=== PATIENT | female | born 1950 | race Caucasian/White ===

== ENCOUNTER 2017-12-01 11:50 | Inpatient (IN) | payer MEDICARE ==
[~2017-12-01] VITALS: Ht 172.7 cm; Wt 52.6 kg
[~2017-12-01 11:50] MED LIST: BUTA1CAP29 PO; LEVO500T8 PO; QUET25TA5 PO; SERT100T PO
[2017-12-01 13:30] VITALS: BP 91/62
[2017-12-01] MEDS ORDERED: ALPR0.25 PO (13:34)
[2017-12-01] MEDS ORDERED: ALPRAZolam 0.25 MG TABLET PO PRN (14:15)
[2017-12-01 14:47] LABS: BASO % 0 % (0-3); EOS # 0.1 x10^3/uL (0.0-0.7); EOS % 2 % (0-3); HEMATOCRIT 41.7 % (36.0-47.0); HEMOGLOBIN 13.9 g/dL (12.0-15.5); LYMPH # 1.9 x10^3/uL (1.0-4.8); LYMPH % 39 % (24-48); MEAN CORPUSCULAR HEMOGLOBIN 32 pg (25-35); MEAN CORPUSCULAR HGB CONC 33 g/dL (31-37); MEAN CORPUSCULAR VOLUME 94 fL (79-100); MONO # 0.5 x10^3/uL (0.0-1.1); MONO % 10 % (0-9); NEUT # 2.3 x10^3uL (1.8-7.7); NEUT % 49 % (31-73); PLATELET COUNT 211 x10^3/uL (140-400); RED BLOOD COUNT 4.42 x10^6/uL (3.50-5.40); RED CELL DISTRIBUTION WIDTH 14.9 % (11.5-14.5); WHITE BLOOD COUNT 4.8 x10^3/uL (4.0-11.0)
[2017-12-01 15:00] VITALS: BP_SYST 104; BP_SYST 146; BP_DIAS 76; BP_DIAS 77
[2017-12-01 15:00] LABS: ALBUMIN 3.5 g/dL (3.4-5.0); ALBUMIN/GLOBULIN RATIO 1.1 (1.0-1.7); CREATININE 0.7 mg/dL (0.6-1.0); GFR 83.2; POTASSIUM 4.9 mmol/L (3.5-5.1); TOTAL BILIRUBIN 0.2 mg/dL (0.2-1.0); TOTAL PROTEIN 6.8 g/dL (6.4-8.2)
[2017-12-01 15:33] LABS: BILIRUBIN,URINE NEGATIVE (NEG); CLARITY,URINE CLEAR; COLOR,URINE YELLOW; NITRITE,URINE NEGATIVE (NEG); PROTEIN,URINE NEGATIVE (NEG-TRACE); UROBILINOGEN,URINE 0.2 mg/dL (0.2 mg/dL)
--- NOTE | 2017-12-01 15:50 | RAD ---
CT head without intravenous contrast History: Headache, weakness. Comparison: None. Technique: Axial images are obtained of the head from the skull base through the vertex without IV contrast. Exposure: One or more of the following individualized dose reduction techniques were utilized for this examination: 1. Automated exposure control 2. Adjustment of the mA and/or kV according to patient size 3. Use of iterative reconstruction technique Findings: The ventricles are appropriate in size, shape, and location for the patient's age. No obvious intracranial mass, mass-effect, midline shift, hemorrhage or obvious acute infarction is identified. Basilar cisterns are patent. Bone windows demonstrate no acute calvarial abnormality. The visualized paranasal sinuses appear clear. Impression: 1. No acute intracranial process. Electronically signed by: Ronald Martin MD (12/01/2017 3:47 PM) [facility]
[2017-12-01 16:00] LABS: BACTERIA,URINE 0 /HPF (0-FEW); HYALINE CASTS, URINE MANY /HPF; RBC,URINE 0 /HPF (0-2); SQUAMOUS EPITHELIAL CELL,UR MOD /LPF
--- NOTE | 2017-12-01 17:03 | PDOC2 ---
NEUROLOGY CONSULT Date of Admission Date of Admission DATE: 12/01/17 TIME: 16:53 Reason for Consult Reason for Consult: IMPRESSION: Persistent severe headaches for about 4-5 days. Chronic migraine headache. generalized weakness. COPD. Depression. RECOMMENDATIONS/PLAN: Neurontin 100 mg tid. Topamax 25 mg bid. Pain control. Brain MRI w/wo contrast. Lab: see orders. Treat medical diseases. HISTORY OF THE PRESENT ILLNESS: 67-y-old female patient with Hx of chronic migraine headache for many years. She used to have 4 or more headaches a month lasting for a day each time , but she has different type of headaches this time as severe and prolonged headaches mostly in her occipital head then the entire head. She rated her headaches 10/10 as severe sharp pain. No projectile vomiting. PAST MEDICAL HISTORY: Chronic migraine headache, depression and COPD. PAST SURGERY HISTORY: Cholecystectomy. ALLERGIES: NKDA. FAMILY HISTORY: Noncontributory. MEDICATIONS: Refer to MAR SOCIAL HISTORY: Lives at home. Denies drinking,and illicit drug use. She smokes cigarettes for years. REVIEW OF SYSTEMS: Constitutional: No cachexia. Head: No traumatic brain or head injury. Skin: No edema, or rash. Ear: No infection. Eyes: No vision loss or color blindness. Nose: No bleeding or purulent discharges. Hearing: No hearing decrease. Neck: No injury. Breast: No history of cancer, masses,or discharges. Cardiac: No SC, arrhythmia,claudication. Pulmonary: No COPD. GI: No GI ulcer, GI bleeding. Urinary/genital: UTI. Endocrinologic: No cousin face, craniofacial dysmorphism, polydactyly. Skeletomuscular: Generalized weakness. Neurological: see HP. Psychiatric: Denies drug use/abuse. Otherwise, not [id number] review of systems. PHYSICAL EXAMINATION: General appearance is in subacute distress. HEENT: Normocephalic and nontraumatic. Eyes, nose, ears, and throat are unremarkable. Neck is supple. No lymphadenopathy. No crepitus. Cardiovascular: S1, S2, regular rate and rhythm. Pulmonary: Clear to auscultation bilaterally. Abdomen: Bowel sounds are positive. Abdomen is soft, nontender, and nondistended. Extremities: No rash, lesions, or edema. No restriction of range of motion NEUROLOGICAL EXAMINATION: Alert Oriented to time, place and person. PERRL. EOMI. CN: no focal findings. Muscle tone: within normal. Muscle strength: 5- DTR: 2 Plantar reflex: Flexor response bilaterally Gait: not examined in chair. Sensory exam: no abnormal findings. No cerebellar signs elicited. F-T-N test accurate. Current Medications Current Medications Current Medications Alprazolam (Xanax) 0.25 mg PRN TID PRN PO ANXIETY / AGITATION; Start 12/01/17 at 14:15 Acetaminophen/ Butalbital/ Caffeine (Fioricet) 1 tab PRN Q4HRS PRN PO MIGRAINE HEADACHE; Start 12/01/17 at 14:15 Quetiapine Fumarate (SEROquel) 25 mg QHS PO ; Start 12/01/17 at 21:00 Gabapentin (Neurontin) 100 mg TID PO ; Start 12/01/17 at 21:00 Topiramate (Topamax) 25 mg BID PO ; Start 12/01/17 at 21:00 Active Scripts Active Reported Xanax (Alprazolam) 0.25 Mg Tablet 1 Tab PO PRN TID Fioricet 50-300-40 Mg Capsule (Butalb/Acetaminophen/Caffeine) 1 Each Capsule 1 Each PO PRN Q4HRS PRN Seroquel (Quetiapine Fumarate) 25 Mg Tablet 1 Tab PO QHS Allergies Allergies: Allergies Coded Allergies Type Severity Reaction Last Updated Verified fentanyl Allergy Severe Anaphylaxis 12/01/17 Yes ROS Review of System The patient denies any associated fevers, chills, headache, ear pain, rhinorrhea , sore throat, stiff neck, productive cough, chest pain, shortness of breath, back or flank pain, abdominal pain, nausea, vomiting, diarrhea, constipation, dysuria, rash, numbness, weakness, tingling, incontinence, difficulty ambulating, or diaphoresis. Physical Exam Physical Exam General: Well developed, well nourished, no acute distress, well appearing HEENT: Pupils equally round and reactive to light, EOMI, no discharge, normal conjunctiva Neck: Supple, no nuchal rigidity, no JVD, trachea midline, no tenderness Cardiac: RRR, no murmurs, no gallops, no rubs Chest/Lungs: CTAB, no wheeze, no rhonchi, no crackles Abdomen: soft, non-distended, no guarding, no peritoneal signs, non-tender Back: No tenderness Extremities: no edema, pulses intact, non-tender,capillary refill <3 sec bilateral upper and lower extremities, Neuro: Alert and oriented x 4, no focal deficits, normal speech Vitals Vitals: Vital Signs Date Time Temp Pulse Resp B/P (MAP) Pulse Ox O2 Delivery O2 Flow Rate FiO2 12/01/17 15:00 98.8 73 16 104/76 (85) 90 Room Air 98.8 Labs Labs Laboratory Tests Test 12/01/17 14:25 12/01/17 14:45 White Blood Count 4.8 x10^3/uL (4.0-11.0) Red Blood Count 4.42 x10^6/uL (3.50-5.40) Hemoglobin 13.9 g/dL (12.0-15.5) Hematocrit 41.7 % (36.0-47.0) Mean Corpuscular Volume 94 fL (79-100) Mean Corpuscular Hemoglobin 32 pg (25-35) Mean Corpuscular Hemoglobin Concent 33 g/dL (31-37) Red Cell Distribution Width 14.9 % (11.5-14.5) Platelet Count 211 x10^3/uL (140-400) Neutrophils (%) (Auto) 49 % (31-73) Lymphocytes (%) (Auto) 39 % (24-48) Monocytes (%) (Auto) 10 % (0-9) Eosinophils (%) (Auto) 2 % (0-3) Basophils (%) (Auto) 0 % (0-3) Neutrophils # (Auto) 2.3 x10^3uL (1.8-7.7) Lymphocytes # (Auto) 1.9 x10^3/uL (1.0-4.8) Monocytes # (Auto) 0.5 x10^3/uL (0.0-1.1) Eosinophils # (Auto) 0.1 x10^3/uL (0.0-0.7) Basophils # (Auto) 0.0 x10^3/uL (0.0-0.2) Erythrocyte Sedimentation Rate 2 (0-25) Sodium Level 141 mmol/L (136-145) Potassium Level 4.9 mmol/L (3.5-5.1) Chloride Level 104 mmol/L (98-107) Carbon Dioxide Level 36 mmol/L (21-32) Anion Gap 1 (6-14) Blood Urea Nitrogen 9 mg/dL (7-20) Creatinine 0.7 mg/dL (0.6-1.0) Estimated GFR (Cockcroft-Gault) 83.2 BUN/Creatinine Ratio 13 (6-20) Glucose Level 76 mg/dL (70-99) Calcium Level 9.0 mg/dL (8.5-10.1) Total Bilirubin 0.2 mg/dL (0.2-1.0) Aspartate Amino Transf (AST/SGOT) 15 U/L (15-37) Alanine Aminotransferase (ALT/SGPT) 20 U/L (14-59) Alkaline Phosphatase 80 U/L (46-116) Creatine Kinase 58 U/L (26-192) Total Protein 6.8 g/dL (6.4-8.2) Albumin 3.5 g/dL (3.4-5.0) Albumin/Globulin Ratio 1.1 (1.0-1.7) Urine Collection Type Unknown Urine Color Yellow Urine Clarity Clear Urine pH 7.0 Urine Specific [place] 1.015 Urine Protein Negative mg/dL (NEG-TRACE) Urine Glucose (UA) Negative mg/dL (NEG) Urine Ketones (Stick) Negative mg/dL (NEG) Urine Blood Negative (NEG) Urine Nitrite Negative (NEG) Urine Bilirubin Negative (NEG) Urine Urobilinogen Dipstick 0.2 mg/dL (0.2 mg/dL) Urine Leukocyte Esterase Negative (NEG) Urine RBC 0 /HPF (0-2) Urine WBC 1-4 /HPF (0-4) Urine Squamous Epithelial Cells Mod /LPF Urine Bacteria 0 /HPF (0-FEW) Urine Hyaline Casts Many /HPF Urine Mucus Mod /LPF Laboratory Tests Test 12/01/17 14:25 12/01/17 14:45 White Blood Count 4.8 x10^3/uL (4.0-11.0) Red Blood Count 4.42 x10^6/uL (3.50-5.40) Hemoglobin 13.9 g/dL (12.0-15.5) Hematocrit 41.7 % (36.0-47.0) Mean Corpuscular Volume 94 fL (79-100) Mean Corpuscular Hemoglobin 32 pg (25-35) Mean Corpuscular Hemoglobin Concent 33 g/dL (31-37) Red Cell Distribution Width 14.9 % (11.5-14.5) Platelet Count 211 x10^3/uL (140-400) Neutrophils (%) (Auto) 49 % (31-73) Lymphocytes (%) (Auto) 39 % (24-48) Monocytes (%) (Auto) 10 % (0-9) Eosinophils (%) (Auto) 2 % (0-3) Basophils (%) (Auto) 0 % (0-3) Neutrophils # (Auto) 2.3 x10^3uL (1.8-7.7) Lymphocytes # (Auto) 1.9 x10^3/uL (1.0-4.8) Monocytes # (Auto) 0.5 x10^3/uL (0.0-1.1) Eosinophils # (Auto) 0.1 x10^3/uL (0.0-0.7) Basophils # (Auto) 0.0 x10^3/uL (0.0-0.2) Erythrocyte Sedimentation Rate 2 (0-25) Sodium Level 141 mmol/L (136-145) Potassium Level 4.9 mmol/L (3.5-5.1) Chloride Level 104 mmol/L (98-107) Carbon Dioxide Level 36 mmol/L (21-32) Anion Gap 1 (6-14) Blood Urea Nitrogen 9 mg/dL (7-20) Creatinine 0.7 mg/dL (0.6-1.0) Estimated GFR (Cockcroft-Gault) 83.2 BUN/Creatinine Ratio 13 (6-20) Glucose Level 76 mg/dL (70-99) Calcium Level 9.0 mg/dL (8.5-10.1) Total Bilirubin 0.2 mg/dL (0.2-1.0) Aspartate Amino Transf (AST/SGOT) 15 U/L (15-37) Alanine Aminotransferase (ALT/SGPT) 20 U/L (14-59) Alkaline Phosphatase 80 U/L (46-116) Creatine Kinase 58 U/L (26-192) Total Protein 6.8 g/dL (6.4-8.2) Albumin 3.5 g/dL (3.4-5.0) Albumin/Globulin Ratio 1.1 (1.0-1.7) Urine Collection Type Unknown Urine Color Yellow Urine Clarity Clear Urine pH 7.0 Urine Specific [place] 1.015 Urine Protein Negative mg/dL (NEG-TRACE) Urine Glucose (UA) Negative mg/dL (NEG) Urine Ketones (Stick) Negative mg/dL (NEG) Urine Blood Negative (NEG) Urine Nitrite Negative (NEG) Urine Bilirubin Negative (NEG) Urine Urobilinogen Dipstick 0.2 mg/dL (0.2 mg/dL) Urine Leukocyte Esterase Negative (NEG) Urine RBC 0 /HPF (0-2) Urine WBC 1-4 /HPF (0-4) Urine Squamous Epithelial Cells Mod /LPF Urine Bacteria 0 /HPF (0-FEW) Urine Hyaline Casts Many /HPF Urine Mucus Mod /LPF NAHOMY ROSALES MD Dec 01, 2017 17:03
--- NOTE | 2017-12-01 18:09 | HP ---
ADMIT DATE: 12/01/2017 CHIEF COMPLAINT AND HISTORY OF PRESENT ILLNESS: This 67-year-old white female is well known to me from followup in the office. The patient was seen on the day of admission with her . The is very concerned about her overall decline over the last week or so. She has been having severe headaches, which she describes starting in the back of her neck spreading throughout the head. She has had a history of headaches and takes Fioricet for the same. It is helping somewhat with these, but the location and pain character is very different. She has also been extremely fatigued, very weak. He states she has been quite pale and clammy at times during this last week or so. In addition, because of the change in headache and profound weakness, it was elected to admit her to workup further, but she did appear ill in the office. She also has had probably some increasing shortness of breath over this last week or so in addition. PAST MEDICAL HISTORY: Remarkable for COPD, some depression as well as anxiety. PAST SURGICAL HISTORY: She has had a prior cholecystectomy. MEDICATIONS: Were brought with the patient, listed on the computer and have been addressed. ALLERGIES: . SOCIAL HISTORY: She is a reformed smoker, nondrinker, does not use drugs. , lives at home with family. FAMILY HISTORY: Noncontributory. REVIEW OF SYSTEMS: As mentioned above. PHYSICAL EXAMINATION: GENERAL: She is a well-developed, well-nourished white female who does appear ill and pale. VITAL SIGNS: Weight is 119 pounds, which is down. Blood pressure is 90/60, pulse is 80 and regular, O2 sat is 89-90% on room air in the office. HEAD, EYES, EARS, NOSE AND THROAT: Unremarkable. NECK: Supple without adenopathy or thyromegaly. CHEST: Revealed decreased breath sounds, but clear. HEART: Regular rate and rhythm without S3, S4, or murmur. ABDOMEN: Soft, nontender, without hepatosplenomegaly or mass. EXTREMITIES: Without cyanosis, clubbing or edema. NEUROLOGIC: Nonfocal. IMPRESSION: New onset headache with profound weakness and shortness of breath. PLAN: The patient has been admitted. CT scanning of the head, lab and neurological consultations have been ordered. The patient will be monitored, managed and treated appropriately. STEFF WATSON MD DR: Nick JOB#: [id number] / [id number]
[2017-12-01 19:51] VITALS: BP 89/55
[2017-12-01 19:52] LABS: AMPHETAMINE/METHAMPHETAMINE NEG (NEG); BARBITURATES POS (NEG); BENZODIAZEPINES NEG (NEG); CANNABINOIDS NEG (NEG); COCAINE NEG (NEG); METHADONE NEG (NEG); OPIATES NEG (NEG); PHENCYCLIDINE NEG (NEG)
[2017-12-01] MEDS: BUTALB/APAP/CAFEIN 50/325/40MG TABLET. PO PRN (20:45)
[2017-12-01] MEDS: GABAPENTIN 100 MG CAPSULE. PO SCH (20:45)
[2017-12-01] MEDS: TOPIRAMATE 25 MG TABLET. PO SCH (20:46)
[2017-12-01] MEDS ORDERED: QUEtiapine 25 MG TABLET. PO SCH (21:00)
[2017-12-01 23:37] VITALS: BP 87/53
[2017-12-02 03:36] VITALS: BP 92/55
[2017-12-02] MEDS: BUTALB/APAP/CAFEIN 50/325/40MG TABLET. PO PRN (06:08)
[2017-12-02 07:35] VITALS: BP 122/83
[2017-12-02] MEDS: GABAPENTIN 100 MG CAPSULE. PO SCH ×2 (09:00→14:00)
[2017-12-02] MEDS: TOPIRAMATE 25 MG TABLET. PO SCH (09:00)
[2017-12-02 11:22] VITALS: BP 116/74
[2017-12-02] MEDS ORDERED: GADOBUTROL 7.5 MMOL/7.5 ML VIAL IV ONE (14:15)
--- NOTE | 2017-12-02 14:54 | RAD ---
MRI of the Brain without and with Contrast 12/02/2017 Clinical History: Recent headaches and dizziness. Technique: Unenhanced T1-weighted sagittal and axial and FLAIR, T2-weighted, gradient echo and diffusion-weighted axial images of the brain were obtained. After the intravenous administration of 5 cc of Gadavist, enhanced T1-weighted axial and coronal images of the brain were obtained. Findings: Comparison is made to the patient's CT scan of the head dated 12/01/2017. There is mild generalized parenchymal atrophy. Patchy, confluent and multiple small focal areas of abnormally increased signal intensity are seen within the periventricular and subcortical white matter of both cerebral hemispheres on the FLAIR and T2-weighted images consistent with areas of small vessel ischemic disease. No acute parenchymal abnormality is seen. No abnormal area of contrast enhancement is noted. No extra-axial fluid collection is seen. There is no MRI evidence of acute ischemia/infarction. The paranasal sinuses are essentially clear. Normal flow voids are seen within the major vascular structures surrounding the brain parenchyma. Impression: No acute parenchymal abnormality is seen. Electronically signed by: Kem Cohen MD (12/02/2017 2:51 PM) [facility]
[2017-12-02 15:47] VITALS: BP 112/62
--- NOTE | 2017-12-02 16:00 | PDOC ---
PROGRESS NOTES Assessment Assessment Persistent severe headaches for about 4-5 days. Chronic migraine headache. generalized weakness. COPD. Depression. No evidence of brain tumor or intracranial abnormal findings. RECOMMENDATIONS/PLAN: Neurontin 100 mg tid. Topamax 25 mg bid. Pain control. Treat medical diseases. FU with PCP. FU with Neurology as needed. HISTORY OF THE PRESENT ILLNESS: 67-y-old female patient with Hx of chronic migraine headache for many years. She used to have 4 or more headaches a month lasting for a day each time , but she has different type of headaches this time as severe and prolonged headaches mostly in her occipital head then the entire head. She rated her headaches 10/10 as severe sharp pain. No projectile vomiting. PAST MEDICAL HISTORY: Chronic migraine headache, depression and COPD. PAST SURGERY HISTORY: Cholecystectomy. ALLERGIES: NKDA. FAMILY HISTORY: Noncontributory. MEDICATIONS: Refer to MAR SOCIAL HISTORY: Lives at home. Denies drinking,and illicit drug use. She smokes cigarettes for years. REVIEW OF SYSTEMS: Constitutional: No cachexia. Head: No traumatic brain or head injury. Skin: No edema, or rash. Ear: No infection. Eyes: No vision loss or color blindness. Nose: No bleeding or purulent discharges. Hearing: No hearing decrease. Neck: No injury. Breast: No history of cancer, masses,or discharges. Cardiac: No [place], arrhythmia,claudication. Pulmonary: No COPD. GI: No GI ulcer, GI bleeding. Urinary/genital: UTI. Endocrinologic: No cousin face, craniofacial dysmorphism, polydactyly. Skeletomuscular: Generalized weakness. Neurological: see HP. Psychiatric: Denies drug use/abuse. Otherwise, not [id number] review of systems. PHYSICAL EXAMINATION: General appearance is in acute distress. HEENT: Normocephalic and nontraumatic. Eyes, nose, ears, and throat are unremarkable. Neck is supple. No lymphadenopathy. No crepitus. Cardiovascular: S1, S2, regular rate and rhythm. Pulmonary: Clear to auscultation bilaterally. Abdomen: Bowel sounds are positive. Abdomen is soft, nontender, and nondistended. Extremities: No rash, lesions, or edema. No restriction of range of motion NEUROLOGICAL EXAMINATION: Alert Oriented to time, place and person. PERRL. EOMI. CN: no focal findings. Muscle tone: within normal. Muscle strength: 5 DTR: 2 Plantar reflex: Flexor response bilaterally Gait: at her baseline normal. Sensory exam: no abnormal findings. No cerebellar signs elicited. F-T-N test accurate. Objective Objective Vital Signs Date Time Temp Pulse Resp B/P (MAP) Pulse Ox O2 Delivery O2 Flow Rate FiO2 12/02/17 15:47 97.5 67 18 112/62 (79) 94 Nasal Cannula 2.0 97.5 Intake and Output 12/02/17 07:00 Intake Total 1150 ml Output Total 400 ml Balance 750 ml Intake Oral 1150 ml Output Urine Total 400 ml Vitals Signs Vitals VS - Last 72 Hours, by Label Date Time Temp Pulse Resp B/P (MAP) Pulse Ox O2 Delivery O2 Flow Rate FiO2 12/02/17 15:47 97.5 67 18 112/62 (79) 94 Nasal Cannula 2.0 97.5 12/02/17 11:22 99.7 68 12 116/74 (88) 97 Nasal Cannula 2.0 99.7 12/02/17 08:00 Nasal Cannula 2.0 12/02/17 07:35 97.6 63 18 122/83 (96) 100 Nasal Cannula 2.0 97.6 12/02/17 03:36 97.7 103 18 92/55 (67) 97 Nasal Cannula 2.0 97.7 12/01/17 23:37 97.9 64 18 87/53 (64) 95 Nasal Cannula 2.0 97.9 12/01/17 20:15 Nasal Cannula 2.0 12/01/17 19:51 98.3 72 16 89/55 (66) 90 Nasal Cannula 2.0 98.3 12/01/17 15:00 98.8 73 16 104/76 (85) 90 Room Air 98.8 12/01/17 14:59 Room Air 12/01/17 13:30 96.4 80 16 91/62 (72) 90 Room Air 96.4 Laboratory Laboratory Laboratory Tests Test 12/01/17 19:00 Urine Opiates Screen Neg (NEG) Urine Methadone Screen Neg (NEG) Urine Barbiturates Pos (NEG) Urine Phencyclidine Screen Neg (NEG) Urine Amphetamine/Methamphetamine Neg (NEG) Urine Benzodiazepines Screen Neg (NEG) Urine Cocaine Screen Neg (NEG) Urine Cannabinoids Screen Neg (NEG) Urine Ethyl Alcohol Neg (NEG) Medication Medications Current Medications Gabapentin (Neurontin) 100 mg TID PO ; Start 12/01/17 at 21:00 Gadobutrol (Gadavist) 5 mmol 1X ONCE IV Last administered on 12/02/17at 14:24 ; Start 12/02/17 at 14:15; Stop 12/02/17 at 14:16; Status DC Quetiapine Fumarate (SEROquel) 25 mg QHS PO Last administered on 12/01/17at 20: 45; Start 12/01/17 at 21:00 Topiramate (Topamax) 25 mg BID PO ; Start 12/01/17 at 21:00 Comment Review of Relevant I have reviewed the following items shena (where applicable) has been applied. NAHOMY ROSALES MD Dec 02, 2017 16:00
--- NOTE | 2017-12-03 11:04 | PN ---
DATE: 12/02/2017 LOCATION: Room 662. SUBJECTIVE: The patient is awake and alert. Headache currently is somewhat relieved. OBJECTIVE: VITAL SIGNS: Stable. She is afebrile, although she did run a low-grade fever of 99.7 this morning. Blood pressures are on the low side, which is normal for her. O2 is at 2 liters per nasal cannula. CHEST: Reveals decreased breath sounds, clear. HEART: Regular. ABDOMEN: Benign. NEUROLOGIC: Nonfocal. CT scanning head and MRI of the head showed no acute changes. SCREENING LABORATORY DATA: Negative. Neurology is following. IMPRESSION: 1. Severe headache, different than her chronic migraine headaches, currently some relief. 2. Chronic obstructive pulmonary disease. 3. Depression. PLAN: Per Neurology. It looks like they are going to start her on Topamax and Neurontin. Likely, the patient will be dismissed in the morning if no further findings were noted by them. STEFF WATSON MD DR: EDWIGE/russ JOB#: [id number] / [id number]
== END 2017-12-02 18:54 | disposition home or self-care (01) | DRG 103 ==
LOC: 6 SOUTH 12:30
PROVIDERS: ADMIT Family Medicine; ATTEND Family Medicine
DX: G43.909 Migraine, unspecified, not intractable, without status migrainosus (principal); J96.10 Chronic respiratory failure, unspecified whether with hypoxia or hypercapnia; F32.9 Major depressive disorder, single episode, unspecified; J44.9 Chronic obstructive pulmonary disease, unspecified; F41.9 Anxiety disorder, unspecified; Z79.899 Other long term (current) drug therapy; Z87.891 Personal history of nicotine dependence; Z90.49 Acquired absence of other specified parts of digestive tract; Z88.8 Allergy status to other drugs, medicaments and biological substances
CPT/HCPCS: 36415; 70450; 70553; 80053; 80307; 81001; 82550; 84443; 85025; 85651; A9585; G0479

== ENCOUNTER → 2018-03-14 | Outpatient (CLI) | payer MEDICARE ==
[~2018-03-14] MED LIST changes: +ALPR0.25 PO
--- NOTE | 2018-03-14 17:28 | RAD ---
CT brain without contrast. HISTORY: Dizziness, headache CT scan of brain was compared with a study from November 2017. There is no intracranial hemorrhage or subdural hematoma. Ventricles are normal in size. There is no mass or shift of the midline. Sinuses are clear. A skull fracture is not identified. IMPRESSION: 1. No intracranial hemorrhage or mass or acute finding noted. Electronically signed by: Javi Pandya MD (03/14/2018 5:23 PM) [facility]
== END | disposition home or self-care (01) ==
LOC: CT 16:46
PROVIDERS: ATTEND Family Medicine
DX: R51 Headache (principal)
CPT/HCPCS: 70450